=== PATIENT | female | born 1985 | race Caucasian/White ===

== ENCOUNTER 2018-04-07 13:57 | Emergency (ER) | payer SELFPAY ==
[~2018-04-07] VITALS: Ht 157.5 cm; Wt 45.4 kg
[2018-04-07] MEDS ORDERED: IV NORMAL SALINE 1000ML BAG 1,000 ML IV SCH (14:25)
--- NOTE | 2018-04-07 14:47 | PHYS DOC ---
Past Medical History Additional Past Medical Histor: endocarditis Smoking: Cigarettes Drug Use: Amphetamine, Benzodiazepine (Xanax), Heroin (intravenous) Adult General Chief Complaint Chief Complaint: OTHER COMPLAINTS HPI HPI Patient is a 32-year-old female who presents to the emergency department for evaluation. The patient states that she is an IV drug user. She states that about 3 years ago, she was diagnosed with endocarditis at [facility] , but left prior to treatment. She states she was treated again about a year ago at for endocarditis, but again signed out AMA before completing treatment. She states that she has had chronic chest pain for years, and has had chronic fatigue. She has also had chronic abdominal pain. She states unfortunately, she continues to use IV drugs, and has not been to rehabilitation for her substance abuse at any point recently. She states that in the past, she has been told that endocarditis could be fatal if untreated, so she presents to the emergency department today to try and get her endocarditis treated. She has not had any fevers recently, although is she states that she sometimes gets "hot and cold" on her "off days", possibly related to heroin withdrawal. She is not having any shortness of breath, or any new chest pain. She is not having any new symptoms. She states that she is engaged, and the main reason for coming to the emergency department as her fianc has wanted her to get her heart checked out untreated, for the sake of their relationship. She states that although she has chronic abdominal pain, she does not have intercourse with more than 1 person, and is not concerned about STDs at this time. She declines evaluation for STDs at this time. The patient states that she did have some swelling of her left face a few days ago but took some Bactrim, which she had left over, and that seems to have improved her symptoms. She states she thought she might of had cellulitis of her face. Patient did urinate on herself just prior to walking in the emergency department, but states that this is because she was walking to get to the hospital for quite a long time and had to use the restroom, and did not have any incontinence. She denies any new back pain. Review of Systems Review of Systems Constitutional: Denies fever or chills [] Eyes: Denies change in visual acuity, redness, or eye pain [] HENT: Denies nasal congestion or sore throat [] Respiratory: Denies cough or shortness of breath [] Cardiovascular: Reports chronic chest pain. Denies shortness of breath.[] GI: Denies new abdominal pain, nausea, vomiting, bloody stools or diarrhea. Does report chronic abdominal pain. [] : Denies dysuria or hematuria [] Musculoskeletal: Denies back pain or joint pain [] Integument: Denies rash or skin lesions [] Neurologic: Denies headache, focal weakness or sensory changes [] Endocrine: Denies polyuria or polydipsia [] All other systems were reviewed and found to be within normal limits, except as documented in this note. Current Medications Current Medications Current Medications Medications (Trade) Dose Ordered Sig/Yandy Start Time Stop Time Status Last Admin Dose Admin Sodium Chloride 1,000 ml @ 1,000 mls/hr Q1H 04/07/18 14:25 04/07/18 15:26 DC 04/07/18 15:27 1,000 MLS/HR Allergies Allergies Allergies Coded Allergies Type Severity Reaction Last Updated Verified No Known Drug Allergies 04/07/18 No Physical Exam Physical Exam PHYSICAL EXAM: CONSTITUTIONAL: Well developed, well nourished HEAD: normocephalic, atraumatic EENT: PERRL, EOMI. Conjunctivae normal color, sclerae non-icteric; moist mucous membranes. There is poor dentition. Gross evidence of abscess, there is no facial swelling. The soft tissues of the pharynx are unremarkable. NECK: Supple, non-tender; no meningismus. LUNGS: Lungs CTA, breathing even and unlabored. Normal air movement. HEART: Regular rate and rhythm, no audible murmur CHEST: No deformity; non-tender ABDOMEN: The abdomen is soft, there is mild diffuse tenderness to palpation of the abdomen, without focal tenderness, rebound, or guarding , no masses or bruits. EXTREM: Normal ROM; no deformity, no calf tenderness. Normal pulses palpable in all extremities. There is no pedal edema. There are no splinter hemorrhages noted. There are track weiss on the extremities bilaterally, but no other focal embolic appearing lesions. SKIN: No rash; no diaphoresis NEURO: Alert; normal speech and cognition; CN's grossly intact; strength grossly intact without focal deficit. BACK: No CVA TTP. Current Patient Data Vital Signs Vital Signs Date Time Temp Pulse Resp B/P (MAP) Pulse Ox O2 Delivery O2 Flow Rate FiO2 04/07/18 16:30 77 18 98/65 (76) 100 Room Air 04/07/18 14:20 97.9 97.9 Lab Values Laboratory Tests Test 04/07/18 15:11 04/07/18 16:30 04/07/18 16:33 White Blood Count 6.6 x10^3/uL (4.0-11.0) Red Blood Count 3.56 x10^6/uL (3.50-5.40) Hemoglobin 10.3 g/dL (12.0-15.5) L Hematocrit 29.7 % (36.0-47.0) L Mean Corpuscular Volume 83 fL (79-100) Mean Corpuscular Hemoglobin 29 pg (25-35) Mean Corpuscular Hemoglobin Concent 35 g/dL (31-37) Red Cell Distribution Width 15.3 % (11.5-14.5) H Platelet Count 178 x10^3/uL (140-400) Neutrophils (%) (Auto) 57 % (31-73) Lymphocytes (%) (Auto) 31 % (24-48) Monocytes (%) (Auto) 8 % (0-9) Eosinophils (%) (Auto) 3 % (0-3) Basophils (%) (Auto) 1 % (0-3) Neutrophils # (Auto) 3.8 x10^3uL (1.8-7.7) Lymphocytes # (Auto) 2.0 x10^3/uL (1.0-4.8) Monocytes # (Auto) 0.6 x10^3/uL (0.0-1.1) Eosinophils # (Auto) 0.2 x10^3/uL (0.0-0.7) Basophils # (Auto) 0.0 x10^3/uL (0.0-0.2) Erythrocyte Sedimentation Rate 32 (0-25) H Sodium Level 137 mmol/L (136-145) Potassium Level 4.4 mmol/L (3.5-5.1) Chloride Level 102 mmol/L (98-107) Carbon Dioxide Level 29 mmol/L (21-32) Anion Gap 6 (6-14) Blood Urea Nitrogen 14 mg/dL (7-20) Creatinine 0.8 mg/dL (0.6-1.0) Estimated GFR (Cockcroft-Gault) 83.7 BUN/Creatinine Ratio 18 (6-20) Glucose Level 93 mg/dL (70-99) Calcium Level 9.2 mg/dL (8.5-10.1) Total Bilirubin 0.3 mg/dL (0.2-1.0) Aspartate Amino Transferase (AST) 19 U/L (15-37) Alanine Aminotransferase (ALT) 20 U/L (14-59) Alkaline Phosphatase 65 U/L (46-116) Creatine Kinase 96 U/L (26-192) Creatine Kinase MB (Mass) 3.3 ng/mL (0.0-3.6) Creatine Kinase MB Relative Index 3.4 % (0-4) Troponin I Quantitative < 0.017 ng/mL (0.000-0.055) C-Reactive Protein, Quantitative 23.1 mg/L (0-3.3) H ZC-Cmo-O-Type Natriuretic Peptide 643 pg/mL (0-124) H Total Protein 7.7 g/dL (6.4-8.2) Albumin 3.5 g/dL (3.4-5.0) Albumin/Globulin Ratio 0.8 (1.0-1.7) L Urine Opiates Screen Pos (NEG) Urine Methadone Screen Neg (NEG) Urine Barbiturates Neg (NEG) Urine Phencyclidine Screen Neg (NEG) Urine Amphetamine/Methamphetamine Pos (NEG) Urine Benzodiazepines Screen Pos (NEG) Urine Cocaine Screen Neg (NEG) Urine Cannabinoids Screen Pos (NEG) Urine Ethyl Alcohol Neg (NEG) POC Urine HCG, Qualitative Hcg negative (Negative) Laboratory Tests 04/07/18 15:11 Laboratory Tests 04/07/18 15:11 EKG EKG [Normal sinus rhythm a rate of 87 beats for minute, normal axis, normal intervals. There are no acute ischemic ST/T changes.] Radiology/Procedures Radiology/Procedures [ER physician preliminary chest x-ray interpretation: No definite acute abnormality. There is a left upper lobe pulmonary nodule, there is questionable mild prominence of the central vasculature. No evidence of overt heart failure.] Course & Med Decision Making Course & Med Decision Making Pertinent Labs and Imaging studies reviewed. (See chart for details) 5:35 PM: The patient's condition remains stable. I spoke with Dr. Rodrigez, Cardiology on-call. Given the fact that the patient is not having any new symptoms suggestive of endocarditis, despite her continued IV drug use which certainly does place her at risk for endocarditis and septic emboli, neither myself nor Dr. Rodrigez feel the patient warrants inpatient evaluation for this. He did request the patient's name and will follow-up with her in the office, and I gave the patient his phone number as well to help facilitate follow-up. I also spoke with the PAT warehouse team member program professional, and did receive rehabilitation resources for the patient, as I think that her immediate health problem is her continued IV drug use. I discussed plan of care with the patient, the need for close follow-up with both cardiology further outpatient value workup of her reported history of endocarditis, the need for suction speech rehabilitation, the need for follow-up of the chest x-ray findings, and return precautions. The patient's sedimentation rate and CRP, while elevated, are nonspecific, and given the patient's repeated history of IV drug use, she certainly a risk for venous septic emboli. However there is no sign of acute infection at this time. I did discuss with cardiology starting empiric antibiotics, but was recommended not to do so. Dragon Disclaimer Dragon Disclaimer This electronic medical record was generated, in whole or in part, using a voice recognition dictation system. Departure Departure Impression: Primary Impression: IV drug abuse Additional Impression: Chronic chest pain Disposition: 01 HOME, SELF-CARE Condition: STABLE Referrals: CUCA CASTRO MD Patient Instructions: Alcohol and Drug Addiction, Finding Treatment, Chest Pain (Nonspecific), Drug Abuse, FAQs Additional Instructions: It is critically important that you get help with your drug addiction. Call [facility], [facility], at [phone]. Alternatively, you may follow-up at [facility], at [phone]. Finally, another facility may follow- up with his [facility], at [phone]. There was a small pulmonary nodule noted in the left upper lung and her chest x -ray. Further outpatient evaluation is warranted repeat imaging might be warranted. Please arrange follow-up with a primary care provider for further evaluation. Finally, it is critically important that you get close follow-up with cardiology , for you reported history of not fully treated endocarditis. Please contact Dr. Castro's office to arrange follow-up. Problem Qualifiers TRINIDAD NAVA MD Apr 07, 2018 14:47
[2018-04-07 15:25] LABS: BASO % 1 % (0-3); EOS # 0.2 x10^3/uL (0.0-0.7); EOS % 3 % (0-3); HEMATOCRIT 29.7 % (36.0-47.0); HEMOGLOBIN 10.3 g/dL (12.0-15.5); LYMPH % 31 % (24-48); MEAN CORPUSCULAR HEMOGLOBIN 29 pg (25-35); MEAN CORPUSCULAR HGB CONC 35 g/dL (31-37); MEAN CORPUSCULAR VOLUME 83 fL (79-100); MONO # 0.6 x10^3/uL (0.0-1.1); MONO % 8 % (0-9); NEUT # 3.8 x10^3uL (1.8-7.7); NEUT % 57 % (31-73); PLATELET COUNT 178 x10^3/uL (140-400); RED BLOOD COUNT 3.56 x10^6/uL (3.50-5.40); RED CELL DISTRIBUTION WIDTH 15.3 % (11.5-14.5); WHITE BLOOD COUNT 6.6 x10^3/uL (4.0-11.0)
[2018-04-07 15:34] LABS: CALCIUM 9.2 mg/dL (8.5-10.1); CREATININE 0.8 mg/dL (0.6-1.0); GFR 83.7; POTASSIUM 4.4 mmol/L (3.5-5.1)
[2018-04-07 15:40] LABS: ALBUMIN 3.5 g/dL (3.4-5.0); ALBUMIN/GLOBULIN RATIO 0.8 (1.0-1.7); C-REACTIVE PROTEIN 23.1 mg/L (0-3.3); TOTAL BILIRUBIN 0.3 mg/dL (0.2-1.0); TOTAL PROTEIN 7.7 g/dL (6.4-8.2)
[2018-04-07 16:30] VITALS: BP 98/65
[2018-04-07 16:47] LABS: AMPHETAMINE/METHAMPHETAMINE POS (NEG); BARBITURATES NEG (NEG); BENZODIAZEPINES POS (NEG); CANNABINOIDS POS (NEG); COCAINE NEG (NEG); METHADONE NEG (NEG); OPIATES POS (NEG); PHENCYCLIDINE NEG (NEG)
--- NOTE | 2018-04-07 19:14 | RAD ---
PA and lateral chest. HISTORY: Chest pain PA and lateral views were taken of the chest. There is a granuloma on the left. There are nipple shadows. There are no acute infiltrates. There is no effusion. There is mild linear scarring or atelectasis in the right lung base. IMPRESSION: 1. Minimal linear scarring or atelectasis without other infiltrates. Electronically signed by: Yfn Wylie MD (04/07/2018 7:10 PM) [id number]
--- NOTE | 2018-04-08 06:30 | EKG ---
[facility] [address] [place] [address] Test Date: 2018-04-07 Test Time: 14:31:19 Pat Name: NANDO BARAHONA Department: Room: Gender: F Net Programmer Analyst: : 1985 Requested By: TRINIDAD NAVA Order Number: [id number] Reading MD: Measurements Intervals [place] Rate: 87 P: 54 [place]: 154 QRS: 73 QRSD: 84 T: 53 QT: 358 QTc: 437 Interpretive Statements SINUS RHYTHM QRS(T) CONTOUR ABNORMALITY CONSIDER INFERIOR MYOCARDIAL DAMAGE POSSIBLY ABNORMAL ECG RI6.01 No previous ECG available for comparison
== END 2018-04-07 18:08 | disposition home or self-care (01) ==
LOC: ER 13:57
DX: F19.10 Other psychoactive substance abuse, uncomplicated (principal); G89.29 Other chronic pain; R07.89 Other chest pain; R10.84 Generalized abdominal pain; I38 Endocarditis, valve unspecified; R53.82 Chronic fatigue, unspecified; F15.10 Other stimulant abuse, uncomplicated; F11.10 Opioid abuse, uncomplicated; F17.210 Nicotine dependence, cigarettes, uncomplicated
CPT/HCPCS: 36415; 71046; 80053; 80307; 81025; 82553; 83880; 84484; 85025; 85651; 86140; 93005; 99284; J7030